=== PATIENT | male | born 1980 | race Caucasian/White ===

== ENCOUNTER → 2024-06-30 | Emergency (ER) | payer BC ==
[~2024-06-30] VITALS: Ht 190.5 cm; Wt 102.1 kg
[2024-06-30 16:54] VITALS: TEMP 98.3
--- NOTE | 2024-06-30 17:00 | NUR ---
BLOOD PER RECTUM X 1 WEEK, LIGHT BLEEDING AT FIRST, MORE TODAY
[2024-06-30 17:17] VITALS: BP 114/74; O2SAT 97
[2024-06-30 17:48] LABS: BASOPHILS % (AUTO) 0.2 % (0.0-2.0); EOSINOPHILS # (AUTO) 0.1 K/uL (0.0-0.7); EOSINOPHILS % (AUTO) 1.2 % (0.0-6.0); HEMATOCRIT 51 % (39-51); HEMOGLOBIN 17.3 g/dL (13.5-17.5); LYMPHOCYTES # (AUTO) 1.6 K/uL (0.8-4.8); LYMPHOCYTES % (AUTO) 13.6 % (20.0-44.0); MEAN CORPUSCULAR HEMOGLOBIN 31 PG (26.0-33.0); MEAN CORPUSCULAR HGB CONC 34 g/dl (31.0-36.0); MEAN CORPUSCULAR VOLUME 91 fL (80-96); MONOCYTES # (AUTO) 0.7 K/uL (0.1-1.30); MONOCYTES % (AUTO) 5.9 % (2.0-12.0); NEUTROPHILS % (AUTO) 79.1 % (43.0-81.0); PLATELET COUNT (AUTO) 262 K/uL (150-450); RED BLOOD CELL COUNT(AUTO) 5.64 MIL/uL (4.5-6.0); RED CELL DISTRIBUTION WIDTH 13.8 % (11.5-15.0); WHITE BLOOD COUNT (AUTO) 11.4 K/uL (4.3-11.0)
[2024-06-30 18:02] LABS: ALBUMIN 3.6 g/dL (3.4-5.0); BILIRUBIN,DIRECT 0.1 mg/dL (0.0-0.2); BILIRUBIN,TOTAL 0.5 mg/dL (0.2-1.0); CALCIUM, SERUM 9.1 mg/dL (8.5-10.1); TOTAL PROTEIN, SERUM 7.7 g/dL (6.4-8.2)
[2024-06-30 18:39] LABS: PARTIAL THROMBOPLASTIN TIME 30.9 SEC (24.3-34.3); PROTHROMBIN TIME 10.6 SECS (9.2-11.1)
--- NOTE | 2024-06-30 18:46 | NUR ---
PT ELOPED FROM ER CALLED PTS SINCE PT DID NOT ANSWER, INITIALLY PTS SAID THAT PT IS HOME AND PT TOOK IV OUTSIDE OF ARM HIMSELF. WHEN TOLD THAT PATIENT WOULD NEED TO RETURN TO ER TO VERIFY PT CHANGED STORY AND SAID THAT PT IS NOT HOME AND SHE DOES NOT KNOW WHERE HE IS. PT ADVISED THAT [employer] WOULD BE CALLED
--- NOTE | 2024-06-30 19:00 | NUR ---
CALLED [employer] SPOKE TO DIRECTOR OF INFECTION PREVENTION 480 TO REPORT PATIENT ELOPED FROM ER WITH IV AND REFUSING TO COME BACK TO VERIFY. GAVE DIRECTOR OF INFECTION PREVENTION PATIENT INFORMATION AND PER DIRECTOR OF INFECTION PREVENTION THEY WILL SEND OFFICERS OUT
== END | disposition left against medical advice (07) ==
LOC: ER 16:12
DX: R10.9 Unspecified abdominal pain (principal); K62.5 Hemorrhage of anus and rectum; R53.83 Other fatigue; Z53.21 Procedure and treatment not carried out due to patient leaving prior to being seen by health care provider
CPT/HCPCS: 36415; 80048-TC; 80076-TC; 85025-TC; 85730-TC